=== PATIENT | female | born 1965 | race Caucasian/White ===

== ENCOUNTER 2018-11-06 16:21 | Emergency (ER) | payer OTHER ==
[~2018-11-06 16:21] MED LIST: Iopamidol 370 76% 200 ML VIAL ONE
[2018-11-06] MEDS ORDERED: Morphine 4 MG/ML VIAL ONE (16:59)
[2018-11-06] MEDS ORDERED: Ketorolac Tromethamine 30 MG/ML VIAL ONE (16:59)
[2018-11-06 17:24] LABS: #Basophils 0.1 thou/uL (0.0-0.2); #Lymphocytes 1.3 thou/uL (1.20-3.40); #Monocytes 0.5 thou/uL (0.11-0.59); %Basophils 1.1 % (0.0-1.0); %Eosinophils 0.6 % (0.0-10.0); %Lymphocytes 16.1 % (21.0-51.0); %Monocytes 6.4 % (0.0-10.0); %Neutrophils 75.9 % (42.0-75.0); Hemoglobin 13.7 g/dL (12.0-16.0); Mean Corpuscular HGB CONC 33.1 g/dL (32.0-36.0); Mean Corpuscular Hemoglobin 29.2 pg (27.0-31.0); Mean Corpuscular Volume 88.2 fL (78.0-98.0); Mean Platelet Volume 6.3 fL (7.4-10.4); Platelet Count 304 thou/uL (130-400); RBC Distribution Width 11.8 % (11.5-14.5); Red Blood Cell (RBC) Count 4.69 mill/uL (4.20-5.40); White Blood Cell (WBC) Count 7.9 thou/uL (4.8-10.8)
[2018-11-06 17:34] LABS: ALT (SGPT) 14 U/L (8-55); AST (SGOT) 18 U/L (5-34); Albumin 4.5 g/dL (3.5-5.0); Alkaline Phosphatase 74 U/L (40-150); Anion Gap 15 mmol/L (10-20); BUN (Urea Nitrogen) 19 mg/dL (9.8-20.1); Bilirubin, Total 0.2 mg/dL (0.2-1.2); CK (CPK) 101 U/L (29-168); Calc. Creatinine Clearance 0 mL/min (70-130); Calcium 8.9 mg/dL (7.8-10.44); Carbon Dioxide 24 mmol/L (22-29); Chloride 107 mmol/L (98-107); Estimated GFR-MDRD 85; Glucose 99 mg/dL (70-105); Lipase 22 U/L (8-78); Potassium 3.3 mmol/L (3.5-5.1); Protein, Total 7.5 g/dL (6.0-8.3); Sodium 143 mmol/L (136-145)
[2018-11-06 17:38] LABS: Bilirubin Negative (Negative); Blood, Urine Moderate (Negative); Clarity Hazy (Clear); Glucose, Urine (Dipstick) Negative (Negative); Leukocyte Negative (Negative); Nitrite Positive (Negative); Protein, Urine (Dipstick) Trace mg/dL (Neg-Trace); Specific Gravity, Urine 1.015 (1.005-1.030); Urobilinogen 0.2 mg/dL (0.2-1.0)
--- NOTE | 2018-11-06 17:38 | CT ---
Contrast-enhanced CTA images of the aorta. HISTORY: Right-sided chest pain. Contrast-enhanced CTA chest of chest and abdomen performed. 2-D and 3-D reconstruction images perform ed on an independent 3-D workstation. Coronary artery calcifications seen. The thoracic and abdominal aorta are unremarkable. No evidence of aneurysms or dissection seen. No evidence of mediastinal or hilar lymphadenopathy seen. No definite evidence of pulmonary parenchymal lesion seen. Area of heterogeneous density in seen in the left hepatic lobe unchanged. The spleen is unremarkable. Adrenal glands kidneys unremarkable. Again a large left pelvic mass is seen unchanged since numerous previous CTs. IMPRESSION: No evidence of aortic dissections or aneurysms.
[2018-11-06 17:46] LABS: Bacteria/HPF Rare-Few HPF (None Seen)
[2018-11-06] MEDS ORDERED: Potassium Chloride 20 MEQ TAB ONE (17:51)
== END 2018-11-06 18:10 | disposition home or self-care (01) ==
LOC: MADERS 16:21
DX: R07.81 Pleurodynia (principal); E87.6 Hypokalemia
CPT/HCPCS: 71275; 80053; 81003; 81015; 82550; 83690; 84484; 85025; 87077; 87086; 87186; 93005; 96374; 96375; J1885; J2270